=== PATIENT | female | born 1980 | race Caucasian/White ===

== ENCOUNTER 2020-04-10 12:21 | Emergency (ER) | payer MEDICAID ==
[~2020-04-10] VITALS: Ht 152.4 cm; Wt 61.0 kg
[2020-04-10 12:29] VITALS: BP 126/69
[2020-04-10] MEDS ORDERED: IBUPROFEN 600MG TABLET PO ONE (14:00)
== END 2020-04-10 17:30 | disposition home or self-care (01) ==
LOC: ER 12:21
DX: S09.8XXA Other specified injuries of head, initial encounter (principal); S39.82XA Other specified injuries of lower back, initial encounter; S89.81XA Other specified injuries of right lower leg, initial encounter; S89.82XA Other specified injuries of left lower leg, initial encounter; V43.52XA Car driver injured in collision with other type car in traffic accident, initial encounter; Y93.89 Activity, other specified; Y92.488 Other paved roadways as the place of occurrence of the external cause
CPT/HCPCS: 71045; 72131; 73562; 73590; 81025; 99285